=== PATIENT | male | born 1970 | race Asian ===

== ENCOUNTER 2019-01-03 13:29 | Emergency (ER) | payer BC ==
[~2019-01-03] VITALS: Ht 177.8 cm; Wt 72.6 kg
[2019-01-03 14:01] VITALS: BP 145/105
[2019-01-03] MEDS ORDERED: KETOROLAC 60 MG/2 ML VIAL. ONE (14:34)
[2019-01-03] MEDS ORDERED: KETOROLAC 60 MG/2 ML VIAL. IM ONE (14:45)
--- NOTE | 2019-01-03 14:46 | PHYS DOC ---
Past Medical History Past Medical History: No Pertinent History Past Surgical History: No Surgical History Alcohol Use: Occasionally Drug Use: None Adult General Chief Complaint Chief Complaint: FOOT INJURY PAIN HPI HPI Patient is a 48 year old who presents to the ER after dropping a table on his foot on Tuesday. The patient reports pain on the distal medial side of his left foot. The patient states he's been taking Tylenol and ibuprofen at home and that is helped the pain mildly but the pain keeps coming back. Reports his pain as 8 out of 10 this time states it is throbbing. Been trying ice on his foot as well. Review of Systems Review of Systems Constitutional: Denies fever or chills [] Eyes: Denies change in visual acuity, redness, or eye pain [] HENT: Denies nasal congestion or sore throat [] Respiratory: Denies cough or shortness of breath [] Cardiovascular: No additional information not addressed in HPI [] GI: Denies abdominal pain, nausea, vomiting, bloody stools or diarrhea [] : Denies dysuria or hematuria [] Musculoskeletal: Denies back pain but reports L foot pain. Integument: Denies rash or skin lesions [] Neurologic: Denies headache, focal weakness or sensory changes [] Endocrine: Denies polyuria or polydipsia [] Complete systems were reviewed and found to be within normal limits, except as documented in this note. Current Medications Current Medications Current Medications Medications (Trade) Dose Ordered Sig/[facility] Start Time Stop Time Status Last Admin Dose Admin Ketorolac Tromethamine (Toradol Im) 60 mg STK-MED ONCE 01/03/19 14:34 01/03/19 14:35 DC Allergies Allergies Allergies Coded Allergies Type Severity Reaction Last Updated Verified No Known Drug Allergies 01/03/19 No Physical Exam Physical Exam Constitutional: Well developed, well nourished, no acute distress, non-toxic appearance. [] HENT: Normocephalic, atraumatic, bilateral external ears normal, oropharynx moist, no oral exudates, nose normal. [] Eyes: PERRLA, EOMI, conjunctiva normal, no discharge. [] Neck: Normal range of motion, no tenderness, supple, no stridor. [] Cardiovascular:Heart rate regular rhythm, no murmur [] Lungs & Thorax: Bilateral breath sounds clear to auscultation [] Abdomen: Bowel sounds normal, soft, no tenderness, no masses, no pulsatile masses. [] Skin: Warm, dry, no erythema, no rash. [] Back: No tenderness, no CVA tenderness. [] Extremities: L foot tenderness, no cyanosis, no clubbing, ROM intact, no edema. [] Neurologic: Alert and oriented X 3, normal motor function, normal sensory function, no focal deficits noted. [] Psychologic: Affect normal, judgement normal, mood normal. [] Current Patient Data Vital Signs Vital Signs Date Time Temp Pulse Resp B/P (MAP) Pulse Ox O2 Delivery O2 Flow Rate FiO2 01/03/19 14:01 98.6 81 18 145/105 (118) 99 Room Air 98.6 EKG EKG [] Radiology/Procedures Radiology/Procedures [] Course & Med Decision Making Course & Med Decision Making Pertinent Labs and Imaging studies reviewed. (See chart for details) Patient is left foot tenderness of it up in table was foot. Will obtain x-ray and give supportive care. Dragon Disclaimer Dragon Disclaimer This electronic medical record was generated, in whole or in part, using a voice recognition dictation system. Departure Departure Impression: Primary Impression: Foot pain Disposition: HOME, SELF-CARE Condition: STABLE Referrals: NO PCP (PCP) Patient Instructions: Elastic Bandage and RICE, Foot Contusion Additional Instructions: Thank you for visiting [facility]. We appreciate you trusting us with your care. If any additional problems come up don't hesitate to return to visit us. Please follow up with your primary care provider so they can plan additional care if needed and know about the problem that you had. If symptoms worsen come back to the Emergency Department. Any concerning symptoms that start such as chest pain, shortness of Air, weakness or numbness on one side of the body, running high fevers or any other concerning symptoms return to the ER. Problem Qualifiers Primary Impression: Foot pain Laterality: left Qualified Codes: M79.672 - Pain in left foot SILVERMANJACKI Bermudez APRN Jan 03, 2019 14:46
--- NOTE | 2019-01-03 15:03 | RAD ---
Left foot, 3 views, 01/03/2019: HISTORY: Left foot pain, trauma No fracture or dislocation is identified. There are only minimal degenerative changes at scattered interphalangeal joints and the first MTP joint. IMPRESSION: No acute bony abnormality is detected. Electronically signed by: Arslan Canela MD (01/03/2019 3:00 PM) [facility]
== END 2019-01-03 15:18 | disposition home or self-care (01) ==
LOC: ER 13:29
DX: M79.672 Pain in left foot (principal)
CPT/HCPCS: 73630; 96372; 99284; J1885